=== PATIENT | male | born 1935 | race Caucasian/White ===

== ENCOUNTER → 2017-07-06 | Outpatient (CLI) | payer MEDICARE, BC | END | disposition home or self-care (01) | LOC: CARD 12:36 | PROVIDERS: ATTEND Internal Medicine Cardiovascular Disease | DX: R09.02 Hypoxemia (principal); Z79.899 Other long term (current) drug therapy | CPT/HCPCS: 94060; 94726; 94729 ==

== ENCOUNTER 2018-04-26 09:44 | Observation (INO) | payer MEDICARE, BC ==
[~2018-04-26] VITALS: Ht 177.8 cm; Wt 86.3 kg
--- NOTE | 2018-04-26 09:50 | NUR ---
CODE NEURO INITIATED.
--- NOTE | 2018-04-26 09:59 | NUR ---
CODE NEURO CANCELLED BY MD DUARTE AFTER BEDSIDE ASSESSMENT. PT'S SYMPTOMS BEGAN RESOLVING AFTER SUPPLIMENTAL O2 APPLIED.
[2018-04-26 10:26] LABS: BASOPHILS # (AUTO) 0.04 x10^3/uL (0-0.1); BASOPHILS % (AUTO) 0 % (0-1); EOSINOPHILS # (AUTO) 0.09 x10^3/uL (0-0.4); EOSINOPHILS % (AUTO) 1 % (1-7); LYMPHOCYTES # (AUTO) 1.48 x10^3/uL (1-3.4); LYMPHOCYTES % (AUTO) 17 % (22-44); MD NO; MEAN CORPUSCULAR HEMOGLOBIN 30.6 pg (27.5-34.5); MEAN CORPUSCULAR HGB CONC 33.7 g/dL (33.2-36.2); MEAN CORPUSCULAR VOLUME 90.9 fL (81-97); MEAN PLATELET VOLUME 10.1 fL (7.4-10.4); MONOCYTES # (AUTO) 0.53 x10^3/uL (0.2-0.8); MONOCYTES % (AUTO) 6 % (2-9); NEUTROPHILS # (AUTO) 6.49 x10^3/uL (1.8-6.8); NEUTROPHILS % (AUTO) 75 % (42-75); PLATELET COUNT 137 x10^3/uL (130-400); RED BLOOD COUNT 4.93 x10^6/uL (4.38-5.82); RED CELL DISTRIBUTION WIDTH 16.1 % (9.4-14.8)
[2018-04-26 10:37] LABS: INTERNATIONAL NORMALIZED RATIO 1.49 (0.93-1.1); PROTHROMBIN TIME 15.4 Seconds (9.6-11.5)
[2018-04-26 10:38] LABS: ALBUMIN 3.5 g/dL (3.4-5.0); ANION GAP 5 mmol/L (5-15); CHLORIDE 109 mmol/L (98-107); CREATININE 1.99 mg/dL (0.7-1.3)
[2018-04-26 10:42] LABS: TROPONIN I 0.017 ng/mL (0.000-0.045)
[2018-04-26] MEDS ORDERED: ACETAMINOPHEN 325 MG TABLET PO PRN (13:00)
[2018-04-26] MEDS ORDERED: ENALAPRILAT 1.25 MG/ML, 2ML IVPush PRN (13:00)
[2018-04-26] MEDS ORDERED: POLYETHYLENE GLYCOL 17 GM PACKET PO PRN (13:00)
[2018-04-26] MEDS ORDERED: DOCUSATE 100 MG CAPSULE PO PRN (13:00)
[2018-04-26] MEDS ORDERED: LABETALOL 5 MG/ML SYRINGE IVPush PRN (13:00)
[2018-04-26 13:06] VITALS: BP 167/97
[2018-04-26] MEDS ORDERED: RIVA15TA PO (13:25)
[2018-04-26] MEDS ORDERED: ATOR40TA78 PO (13:25)
[2018-04-26] MEDS ORDERED: METO25TA91 PO (13:25)
[2018-04-26] MEDS ORDERED: HYDR12.59 PO (13:25)
[2018-04-26] MEDS ORDERED: DIAZ10TA PO (13:36)
[2018-04-26] MEDS ORDERED: DIPH25TA65 PO (13:36)
[2018-04-26] MEDS ORDERED: RIVA20TA PO (13:39)
[2018-04-26] MEDS ORDERED: PLEASE ENTER ALLERGIES MC SCH (14:00)
[2018-04-26 19:45] VITALS: BP 162/93
[2018-04-26] MEDS ORDERED: DIAZEPAM 5 MG TABLET PO SCH (21:00)
[2018-04-26] MEDS ORDERED: DIAZEPAM 5 MG TABLET PO PRN (21:00)
[2018-04-26] MEDS ORDERED: ATORVASTATIN 40 MG TABLET PO SCH (21:00)
[2018-04-26] MEDS ORDERED: DIAZEPAM 10 MG TABLET PO SCH (21:00)
[2018-04-27 03:00] VITALS: BP 154/78
[2018-04-27] MEDS ORDERED: RIVAROXABAN 20 MG TABLET PO SCH (08:00)
[2018-04-27 08:39] VITALS: BP 157/103
[2018-04-27] MEDS ORDERED: METOPROLOL SUCCINATE 25 MG TAB.ER.24H PO SCH (09:00)
[2018-04-27] MEDS ORDERED: DIPHENHYDRAMINE 25 MG CAPSULE PO SCH (09:00)
[2018-04-27] MEDS ORDERED: HYDROCHLOROTHIAZIDE 12.5 MG CAPSULE PO SCH (09:00)
[2018-04-27 10:19] LABS: ANION GAP 6 mmol/L (5-15); CALCIUM 8.9 mg/dL (8.5-10.1); CHLORIDE 108 mmol/L (98-107); CREATININE 1.81 mg/dL (0.7-1.3)
[2018-04-27 14:00] VITALS: BP 131/96
== END 2018-04-27 15:26 | disposition home or self-care (01) ==
LOC: ED 11:15 → 4WST 12:30 → INTOOBSV 12:30
PROVIDERS: ADMIT Internal Medicine; ATTEND Internal Medicine
DX: J96.11 Chronic respiratory failure with hypoxia (principal); R41.82 Altered mental status, unspecified; G47.33 Obstructive sleep apnea (adult) (pediatric); J44.9 Chronic obstructive pulmonary disease, unspecified; I48.2 Chronic atrial fibrillation; R29.810 Facial weakness; I13.0 Hypertensive heart and chronic kidney disease with heart failure and stage 1 through stage 4 chronic kidney disease, or unspecified chronic kidney disease; I50.20 Unspecified systolic (congestive) heart failure; N18.3 Chronic kidney disease, stage 3 (moderate); I25.10 Atherosclerotic heart disease of native coronary artery without angina pectoris; Z79.01 Long term (current) use of anticoagulants; Z92.3 Personal history of irradiation; Z95.1 Presence of aortocoronary bypass graft; Z85.72 Personal history of non-Hodgkin lymphomas
CPT/HCPCS: 36415; 36600; 71045; 80048; 82040; 82803; 84484; 85025; 85610; 85730; 93005; 94660; 99284; G0378

== ENCOUNTER 2018-06-08 10:39 | Day surgery (SDC) | payer MEDICARE, BC ==
[~2018-06-08] VITALS: Ht 177.8 cm; Wt 84.1 kg
[~2018-06-08 10:39] MED LIST: ATOR40TA78 PO; DIAZ10TA PO; DIPH25TA65 PO; HYDR12.59 PO; METO25TA91 PO; RIVA15TA PO; RIVA20TA PO
[2018-06-08 11:32] VITALS: BP 152/89
[2018-06-08] MEDS ORDERED: PROB500T22 PO (11:38)
[2018-06-08] MEDS ORDERED: Tylenol PM PO (11:49)
[2018-06-08] MEDS ORDERED: ZOLP-413 PO (11:49)
[2018-06-08 11:58] LABS: ANION GAP 8 mmol/L (5-15); CALCIUM 9.5 mg/dL (8.5-10.1); CHLORIDE 105 mmol/L (98-107); CREATININE 1.77 mg/dL (0.7-1.3)
[2018-06-08] MEDS ORDERED: PROPOFOL 10 MG/ML, 20ML ONE (12:45)
== END 2018-06-08 14:26 | disposition home or self-care (01) ==
LOC: CACL 10:39
PROVIDERS: ATTEND Internal Medicine Cardiovascular Disease
DX: I48.0 Paroxysmal atrial fibrillation (principal); G47.33 Obstructive sleep apnea (adult) (pediatric); E78.00 Pure hypercholesterolemia, unspecified; I10 Essential (primary) hypertension; Z87.891 Personal history of nicotine dependence; Z95.1 Presence of aortocoronary bypass graft
CPT/HCPCS: 36415; 80048; 92960; J2704

== ENCOUNTER 2018-07-14 07:01 | Outpatient (CLI) | payer MEDICARE, BC ==
[~2018-07-14 07:01] MED LIST changes: +PROB500T22 PO; +Tylenol PM PO; +ZOLP-413 PO
== END 2018-07-14 23:59 | disposition home or self-care (01) ==
LOC: CVU 07:01
PROVIDERS: ATTEND Internal Medicine Cardiovascular Disease
DX: I08.8 Other rheumatic multiple valve diseases (principal); I48.0 Paroxysmal atrial fibrillation; I10 Essential (primary) hypertension
CPT/HCPCS: 93306